=== PATIENT | female | born 1950 | race African-American/Black ===

== ENCOUNTER → 2018-12-15 | Outpatient (CLI) | payer OTHER, MEDICARE ==
[~2018-12-15] VITALS: Ht 149.9 cm; Wt 56.2 kg
[~2018-12-15] MED LIST: REGADENOSON 0.4 MG/5 ML PF SYG IVP SCH
== END | disposition home or self-care (01) ==
LOC: SHCH 08:52
PROVIDERS: ATTEND Internal Medicine Cardiovascular Disease
DX: I20.9 Angina pectoris, unspecified (principal)
CPT/HCPCS: 78452; 93017; 96374; A9500 ×2; J2785